=== PATIENT | female | born 1990 | race Caucasian/White ===

== ENCOUNTER → 2021-06-26 | Outpatient (CLI) | payer MEDICAID, OTHER | LOC: M LABSMTC 10:16 | PROVIDERS: ATTEND Anesthesiology | DX: Z01.812 Encounter for preprocedural laboratory examination (principal); Z11.52 Encounter for screening for COVID-19 ==

== ENCOUNTER 2021-07-01 08:32 | Day surgery (SDC) | payer OTHER ==
[~2021-07-01] VITALS: Ht 170.2 cm; Wt 56.2 kg
[~2021-07-01 08:32] MED LIST: AMPICILLIN SOD/SULBACTAM SOD 3 GM in D5W MINI-BAG PLUS 100 ML IV ONE; LIDOCAINE 1% MDV 20ML VIAL SQ PRN; LR 1,000 ML IV ONE; dexameTHASONE 4 MG/ML 1ML VIAL (J1100 PER 1MG) IV ONE
[2021-07-01] MEDS ORDERED: fentaNYL 100 MCG/2 ML INJECTION As Ordered ONE (09:29)
[2021-07-01] MEDS ORDERED: propofoL 200 MG/20 ML VIAL As Ordered ONE (09:29)
[2021-07-01] MEDS ORDERED: ONDANSETRON 4MG/2ML VIAL As Ordered ONE (09:29)
[2021-07-01] MEDS ORDERED: ROCURONIUM BROMIDE 50 MG/5 ML VIAL As Ordered ONE (09:29)
[2021-07-01] MEDS ORDERED: LIDOCAINE 2% 100MG/5ML SDV (FOR ANES.) As Ordered ONE (09:29)
[2021-07-01] MEDS ORDERED: KETOROLAC 60MG 2ML VIAL As Ordered ONE (09:29)
[2021-07-01] MEDS ORDERED: MIDAZOLAM INJ 2MG/2ML VIAL (J2250 PER 1MG) As Ordered ONE (09:29)
[2021-07-01] MEDS ORDERED: SUGAMMADEX SODIUM 500 MG/5 ML VIAL (BRIDION) As Ordered ONE (09:29)
[2021-07-01] MEDS ORDERED: LIDOCAINE 2% W/ EPINEPHRINE 1.7 ML DENTAL INJ As Ordered ONE (11:20)
[2021-07-01] MEDS ORDERED: ONDANSETRON 4MG/2ML VIAL IV PRN (13:15)
[2021-07-01] MEDS ORDERED: fentaNYL 100 MCG/2 ML INJECTION IV PRN (13:15)
[2021-07-01] MEDS ORDERED: oxyCODONE 5MG TAB PO PRN (13:15)
[2021-07-01] MEDS ORDERED: LR 1,000 ML IV SCH (13:15)
[2021-07-01] MEDS ORDERED: METOCLOPRAMIDE INJ 10MG/2ML VIAL (J2765 PER 1) IV PRN (13:15)
[2021-07-01 13:50] VITALS: BP 120/73
[2021-07-02] MEDS ORDERED: UNRESOLVED CLARIFICATION ENTRY XX SCH (00:01)
== END 2021-07-01 14:00 | disposition home or self-care (01) ==
LOC: M SDC 08:32
PROVIDERS: ATTEND Dentist
DX: K02.9 Dental caries, unspecified (principal); F17.210 Nicotine dependence, cigarettes, uncomplicated
CPT/HCPCS: 81025; 88300; D7140; D7210; D7310; D7311; D9223; J1100; J1885; J2250; J2405; J3010